=== PATIENT | female | born 1960 | race African-American/Black ===

== ENCOUNTER → 2017-12-31 | Outpatient (CLI) | payer OTHER ==
[~2017-12-31] VITALS: Ht 236.2 cm; Wt 70.3 kg
[~2017-12-31] MED LIST: ACETAMINOPHEN-1 EAC1 PO; AMITRIPTYLINE H10 M3 PO; AMITRIPTYLINE H25 M2 PO; CALICUM 500+D1 EACH PO; CAYENNE450 MG PO; CLONAZEPAM 0.50.5 M1 PO; CLONAZEPAM 1 MG1 M1 PO; CRESTOR10 MG PO; CURCUMIN1 GM PO; CYMBALTA60 MG PO; DIETHYLPROPION75 MG PO; FLEXERIL PO; HYDROCODONE-APA1 TA1 PO; INDAPAMIDE1.25 MG PO; LEVOTHYROXIN0.125 M1 PO; LIDODERM 5%1 PATC1 TRANSDERM; MEDROLDOSEPACK PO; MOBIC15 MG PO; NEPHROCAPS SOFT1 CAP PO; NEURONTIN 300300 M1 PO; NEURONTIN800 MG PO; PHENTERMINE H37.5 M1 PO; POLYETHYLENE G255 G1 PO; PROTONIX40 M1 PO; ROBAXIN 750 MG750 M1 PO; SIMVASTATIN40 MG PO; SYNTHROID50 MCG PO; VITAMIN B122500 MC1 PO; VITAMIN D 5050000 I1 PO; ZOFRAN ODT4 MG PO
--- NOTE | ~2017-12-31 | HPC ---
[facility] [address] [place] [address] PAIN MANAGEMENT CONSULTATION Name: JEREMY COELLO Room #: REG NELLY MKarenSkylar.#: [id number] Admission: 12/31/17 Attend Phys: Honey Oakes MD Discharge: Date of : 56 Report #: [id number] THIS REPORT FOR: //name// CC: Sonya Oakes DATE OF SERVICE: 12/31/2017 CHIEF COMPLAINT: Bilateral leg pain, hip pain on the left. HISTORY OF PRESENT ILLNESS: The patient is a 57-year-old female who has been referred to the pain clinic for evaluation. She has been having pain and discomfort in the low back area as well as involving her left hip and pain down into her legs bilaterally. This has been quite problematic since 2016. She describes it as muscle spasms in both legs, the lower back, hip pain, tenderness in the left leg with tingling. She notes that the pain is worse when she is standing or sitting for a prolonged period of time. She is not sure of anything that makes it significantly better. She denies any problems with her bowel or bladder, which are new. Denies any trauma. She has not had back surgery. She describes it as constant, burning, aching and tender. She works at [employer]. After her job is completed, there she notes some increased discomfort. She does do quite a bit of walking and other types of activity. CURRENT MEDICATIONS: Cayenne 450 mg capsule b.i.d. helps with hypertension and cholesterol, Turmeric 1 g powder, 1 capsule daily as an anti-inflammatory medication, phentermine 37.5 b.i.d., Robaxin 750 mg q. 4h muscle spasms, MiraLax 17 g p.r.n. constipation, clonazepam 1.5 mg at bedtime, Synthroid 50 mcg, Crestor 10 mg, vitamin B12 2500 mcg, vitamin D 50,000 international units, hydrocodone 7.5/325 q. 4h p.r.n. pain, calcium 500 plus vitamin D chewable nephrocaps, soft gel daily, Lidoderm patch transdermal q. 12h. FAMILY HISTORY: Has a daughter who is alive. Father has . Mother is . Two brothers are healthy, one son and two daughters healthy. Denies use of illegal drugs. PAST MEDICAL HISTORY: Hypothyroidism, diverticulitis, pseudocyst of pancreas, hyperlipidemia, hypercholesterolemia, cervical radiculopathy, restless leg syndrome, obesity. PAST SURGICAL HISTORY: Gastric bypass in 2007, partial bowel obstruction in 2010, in 1989, cholecystectomy in 2009. 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 She does not start working at [employer] until 01/27/2018 and has not been working since 10/[address]. [place] [address] PAIN MANAGEMENT CONSULTATION Name: JEREMY COELLO [facility]: [facility] [id number] Admission: 12/31/17 Attend Phys: Honey Oakes MD Discharge: Date of : 56 Report #: [id number] REVIEW OF SYSTEMS: Indicates generally good health, night sweats, wears glasses, numbness and tingling sensation in the lower legs, thyroid disease. Otherwise, unremarkable. History of left cervical radiculopathy C6-C7 with MRI and EMG evidence, which supported that diagnosis in 2009. MRI of the lumbar spine dated 10/15/2017 reveals mild bilateral facet degenerative changes at L5-S1. PAIN CLINIC ASSESSMENT: 1. The patient is not being treated for osteoarthritis or rheumatoid arthritis on a significant basis. 2. Height 5 feet 3 inches, weight 155 pounds, BMI is not listed. 3. Vital signs: Blood pressure 122/79, pulse 91, respiratory rate 16, room air saturations 100%. 4. Pain intensity 05/10. 5. Fall risk. The patient has not fallen in the last 3 months. 6. The patient is not on any blood thinners 7. History of hypertension. The patient is being treated for hypertension. 8. Opioid therapy greater than 6 weeks. The patient is not receiving opioid medication for greater than 6 weeks. 9. Risk assessment tool, low for narcotics. 10. Functional assessment tool, 33/70 in regards to general activity, mood, walking ability, normal work, relationships with others, sleep, enjoyment of life. 11. The patient denies use of tobacco. 12. The patient denies use of illegal drugs. 13. The patient denies frequent use of alcoholic beverages. PHYSICAL EXAMINATION: GENERAL: The patient is a well-developed black female. She appears her stated age. Orientation: The patient is alert and oriented x 3. Affect: The patient's affect appears appropriate. HEENT: Normocephalic, atraumatic with extraocular eye muscles intact. Hearing within normal limits. No nasal complaints. Moist buccal membranes. NECK: Without JVD or bruits. EXTREMITIES: Upper extremities judged to be 5/5 with +2 biceps tendon reflexes. Sensation is within normal limits. ABDOMEN: Abdomen is nontender. MUSCULOSKELETAL: Alignment. No significant scoliosis, kyphosis or lordosis. Forward bending cause some increased discomfort in the low back area as well as in the left buttocks area. Extension was somewhat limited, but not significantly problematic left and right lateral rotation cause some increased discomfort in the low back area. Deep tendon reflexes are +1 at the knees and ankles bilaterally. Muscle strength is judged to be 5/5 for the major muscle groups of the lower extremity. The patient complains of muscle spasms and discomfort in the lower legs, L4-L5 distribution. Has some pain and discomfort [facility] [address] [place] [address] PAIN MANAGEMENT CONSULTATION Name: JEREMY COELLO Room #: REG NELLY Kwon#: [id number] Admission: 12/31/17 Attend Phys: Honey Oakes MD Discharge: Date of : 56 Report #: [id number] and tenderness in the left leg with numbness and tingling radiating down into her leg. Straight leg raise positive on the left. IMPRESSION: 1. Lumbar radicular pain with pain radiating down into the left leg. 2. Hypertension. 3. Hypothyroidism. 4. History of cervical radiculopathy. 5. History of gastric bypass surgery. 6. Hypercholesterolemia. 7. Hyperlipidemia. 8. Restless leg syndrome. RECOMMENDATIONS: We discussed treatment options with the patient. They include conservative treatment or an epidural steroid injection. The patient is having clinical findings consistent with lumbar radiculopathy with pain radiating down to the left leg with numbness, tingling and weakness. At this juncture, we will try a conservative approach. She has been given a script for Medrol Dosepak. She is having difficulty with sleep and pain. We will provide Elavil 10 mg at bedtime and she will increase this as tolerated. We would like to thank you for letting us participate in her care. When she returns after being precerted by her insurance company, we will then consider a lumbar epidural steroid injection if her pain continues to be problematic. <ELECTRONICALLY SIGNED> By: Honey Oakes MD 01/12/18 1434 [id number] Honey Oakes MD /[facility]
[2017-12-31 11:13] VITALS: BP 122/79
== END ==
LOC: PAIN 07:10
DX: M54.16 Radiculopathy, lumbar region (principal); I10 Essential (primary) hypertension; E03.9 Hypothyroidism, unspecified; M54.12 Radiculopathy, cervical region; E78.00 Pure hypercholesterolemia, unspecified; E78.5 Hyperlipidemia, unspecified; M79.605 Pain in left leg; M79.604 Pain in right leg; M25.552 Pain in left hip; Z79.891 Long term (current) use of opiate analgesic

== ENCOUNTER → 2018-01-14 | Outpatient (CLI) | payer OTHER ==
[~2018-01-14] VITALS: Ht 160 cm; Wt 71.7 kg
[~2018-01-14] MED LIST changes: +LIDOCAINE1 EACH TRANSDERM
--- NOTE | ~2018-01-14 | HPC ---
[facility] [address] [place] [address] PAIN MANAGEMENT CONSULTATION Name: JEREMY COELLO Room #: REG NELLY KunzKarenSkylar.#: [id number] Admission: 01/14/18 Attend Phys: Honey Oakes MD Discharge: Date of : 56 Report #: [id number] THIS REPORT FOR: //name// CC: Sonya Oakes DATE OF SERVICE: 01/14/2018 CHIEF COMPLAINT: Bilateral pain in both legs. Continued muscle spasms in the left leg and down to the anterior portion of the knee as well as some in the lower back. FOLLOWUP HISTORY: The patient is a 57-year-old female who has been seen in the pain clinic because of pain and discomfort involving her back with pain radiating down into the left leg. She was given a conservative treatment at the last visit. She continues to have pain and discomfort and rates it as 5/10. Notes that the pain is worse when she is sitting, standing and walking. Medications are somewhat helpful. She is experiencing pain in the low back down in the area of her "tailbone and down into her left knee." She has been having pain and discomfort since 2016. As you may recall, she has a very strenuous job. She works at the [employer]. She works as a crowd director. She is "on her feet for a significant amount of time." ALLERGIES: CHOLESTEROL MEDICATION, THE NAME OF WHICH SHE CANNOT RECALL. CURRENT MEDICATIONS: Include: Cayenne 450 mg capsules b.i.d. to help with hypertension and cholesterol; turmeric 1 gram powder, 1 capsule daily as an anti-inflammatory medication; phentermine 37.5 mg b.i.d., Robaxin 750 mg q.4 hours p.r.n. muscle spasms; MiraLax 17 grams for constipation; clonazepam 1.5 mg at bedtime; Synthroid 50 mcg; Crestor 10 mg; vitamin B12 2500 mcg; vitamin D 50,000 international units; hydrocodone 7.5 mg/325 mg q.4 hours p.r.n. pain; calcium 500 mg; vitamin D chewable; Nephrocaps; soft gel daily; and Lidoderm patches q.12 hours. PAIN CLINIC ASSESSMENT: 1. History of osteoarthritis. The patient is not being treated for rheumatoid arthritis or osteoarthritis. 2. Height 5 feet 3 inches, weight 153 pounds, BMI 28. 3. Vital Signs: Blood pressure 118/74, pulse 108, respiratory rate 16, room air saturation is 100%. 4. Pain intensity. The patient rates her pain as 5/10 at this juncture. 5. Fall risk: The patient has not fallen in the last 3 months. 6. The patient is not on blood thinners. 7. History of hypertension. The patient is being treated for hypertension. 8. Opioid therapy. The patient is [place] [address] PAIN MANAGEMENT CONSULTATION Name: JEREMY COELLO MICHAEL Room #: REG NELLY Kwon#: [id number] Admission: 01/14/18 Attend Phys: Honey Oakes MD Discharge: Date of : 56 Report #: [id number] than 6 weeks. 9. Risk assessment tool, slow for narcotics. 10. Functional assessment tool, 33/70 in regards to general activity, mood, walking ability, normal work, relationships with others, sleep and enjoyment of life. 11: The patient denies use of tobacco. 12. The patient denies use of illegal drugs. 13. The patient denies frequent use of alcoholic beverages PHYSICAL EXAMINATION: GENERAL: The patient is a well-developed black female. She appears her stated age. Orientation, she is alert and oriented x 3. Affect: Her affect appears appropriate. HEENT: Normocephalic, atraumatic. Extraocular eye muscles intact. Hearing is within normal limits. Nasal is moist without complaints. Sclerae are normal. NECK: Without JVD or bruits. EXTREMITIES: The upper extremities are judged to be 5/5 with +2 biceps tendon reflexes. Sensation is within normal limits. Abdomen is nontender. MUSCULOSKELETAL: Alignment: No significant kyphosis, scoliosis or lordosis of the back. Some mobility of the lower back causes some increased discomfort with flexion, extension, rotation, left and right lateral bending. Notes some increased discomfort in the left buttocks area. The patient has discomfort and this pain in the area of the L4-L5 distribution. Notes some numbness and tingling in the left leg with radiation down into her leg. Straight leg raise on the left is positive. IMPRESSION: 1. Lumbar radiculopathy with pain radiating down to the left leg. 2. Hypertension. 3. Hypothyroidism. 4. History of cervical radiculopathy. 5. History of gastric bypass surgery. 6. Hypercholesterolemia. 7. Hyperlipidemia. 8. Restless leg syndrome. RECOMMENDATIONS: We discussed treatment options with the patient. At this juncture, we will try amitriptyline. She has had no problem with that. We will increase this to 25 mg p.o. at bedtime. She will also try gabapentin 300 mg 1 p.o. t.i.d. If her pain continues to be problematic. We will continue with a conservative approach. If her pain remains problematic when she returns, we will proceed with a lumbar epidural steroid injection. <ELECTRONICALLY SIGNED> By: Honey Oakes MD 02/02/18 0816 [id number] Honey Oakes MD /[facility]
[2018-01-14 10:24] VITALS: BP 118/74
== END ==
LOC: PAIN 07:20
DX: M54.16 Radiculopathy, lumbar region (principal); I10 Essential (primary) hypertension; E03.9 Hypothyroidism, unspecified; G25.81 Restless legs syndrome; E78.00 Pure hypercholesterolemia, unspecified

== ENCOUNTER → 2021-12-24 | Outpatient (CLI) | payer OTHER | LOC: CAT 09:10 | PROVIDERS: ATTEND Family Medicine | DX: Z13.6 Encounter for screening for cardiovascular disorders (principal); E78.00 Pure hypercholesterolemia, unspecified; I25.10 Atherosclerotic heart disease of native coronary artery without angina pectoris ==